=== PATIENT | female | born 1960 | race African-American/Black ===

== ENCOUNTER → 2016-11-18 | Outpatient (CLI) | payer OTHER ==
--- NOTE | ~2016-11-18 | MY29 ---
[facility] A Service of [facility] RADIOLOGY TEXT RESULTS PATIENT: LEONIDAS COLLAZO LOCATION: [facility] : 56 UNIT #: [id number] AGE: [address]: JOSR CORNEJO APRN SEX: F ORDER DR: [id number] [facility] [address] [place], [place] [address] [id number] O MR#: [id number] Acc #: [id number] NAME: LEONIDAS COLLAZO : 1960 SEX: F STUDY DATE/TIME: 11/18/2016 11:51 UNIT: [facility] ROOM: STUDY DESCRIPTION: MY KATIE SCREENING W/ CAD BILAT Attending Physician: Josr Cornejo R.N. Referring Physician: Josr Cornejo R.N. Ordering Physician: Josr Cornejo R.N. Primary Care Physician: Josr Cornejo R.N. MEDICAL IMAGING REPORT This report is preliminary unless electronic signature is present EXAM Digital screening mammogram, 11/18/2016 HISTORY 56-year-old woman no risk elevation. Annual screening. COMPARISON 11/17/2015 FINDINGS Digital imaging of each breast was completed utilizing a two-view examination of each breast in craniocaudal and mediolateral-oblique projections. Review and interpretation of digital mammograms include a second review in conjunction with FDA-approved CAD device. There is a normal parenchymal presentation bilaterally consistent with the patient's age. There are no breast masses imaged and no parenchymal asymmetry is visualized. There are no suspicious microcalcifications and I see no focal architectural disturbance. IMPRESSION Negative screening digital mammogram. One-year followup recommended. Patients over the age of 40 are entered into a reminder system with target due date for the next mammogram. A result letter will also be sent to the patient. BIRADS: 1 Negative Dictated by... Markel Wong M.D. THIS IS AN ELECTRONICALLY VERIFIED REPORT Markel Wong M.D. at 11/18/2016 2:46 PM [facility] A Service of [facility] RADIOLOGY TEXT RESULTS PATIENT: LEONIDAS COLLAZO [id number] : 56 UNIT #: [id number] AGE: [address]: JOSR CORNEJO APRN SEX: F ORDER DR: Yasmine TD: 11/18/2016 14:16 JOB #: [id number] MEDICAL IMAGING REPORT Page 1 of 1 COPY
== END | disposition home or self-care (01) ==
LOC: CWCC 11:30
DX: Z12.31 Encounter for screening mammogram for malignant neoplasm of breast (principal)
CPT/HCPCS: G0202